=== PATIENT | male | born 1975 | race Two or more races ===

== ENCOUNTER 2025-02-07 13:07 | Outpatient (AMB) | payer MEDICAID, SELFPAY ==
[2025-02-07 13:28] VITALS: BP 160/97; PULSE 92; RESP 18; TEMP 36.9; O2SAT 98; BMI 31.2
--- NOTE | 2025-02-07 13:28 | PD.ORTHCLVIS ---
Vital signs 02/07/25 13:28 Height 1.7 m Height Method Stated Weight 90.407 kg Weight Measurement Method Standing Scale BMI 31.2 BP 160/97 H Blood Pressure Source Automatic Cuff Blood Pressure Location Right Upper Arm Position Sitting Respiration 18 Pulse 92 Pulse Source Monitor Temp 98.4 F Temp Source Temporal Artery Scan Pulse Oximetry (%) 98 Oxygen Delivery Method Room Air Med/Allergies Allergies & Medications Allergies No Known Allergies Allergy (Verified 02/07/25 13:29) Medication Reconciliation Unobtainable 02/07/25 [History Confirmed 02/07/25] Exam Exam Patient is in no acute distress and is cooperative with the examination today. Breathing is nonlabored. In no respiratory distress. Bilateral extremities were evaluated and demonstrates sensation intact to light touch. Palpable pedal pulses are present. No significant edema is present. Bilateral hips were examined. The patient has no pain with log roll of the hips. Internal rotation to 30 degrees and external rotation to 30 degrees is painless. Negative FADIR. The left knee was examined. The left knee is in varus alignment. Range of motion from 0-115 degrees. Knee is stable to varus and valgus as well as AP translation with <5mm. Patient has a negative McMurrays. There is no pain with patellofemoral compression and no crepitus noted. The knee is tender to palpation medially. The right knee was also examined. The right knee is in varus alignment. Range of motion from 0-120 degrees. Knee is stable to varus and valgus as well as AP translation with <5mm. Patient has a negative McMurrays. There is no pain with patellofemoral compression and no crepitus noted. The knee is tender to palpation medially X-rays were reviewed by me. This demonstrates complete joint space obliteration medially and [id number] arthritis. Assessment and Plan Problem List (1) Arthritis of both knees: Status: Acute Plan: Patient is a 49-year-old male with bilateral knee pain and bilateral knee arthritis. He has right greater than left knee pain. X-rays demonstrate severe arthritis of his right knee. We discussed total knee replacement is a reasonable option. I think his biggest issue is his back right now as he is using a walker because of it. He would need to see a back specialist. We will see him back when he is ready to get his knee replaced but his back should be addressed first Office Procedures GNS Level of Care Nursing/Assessment Patient Status: Initial/New Patient Nursing Assessment/Reassesment: Medication Reconciliation, Update PMH in EMR and Vital Signs Coordination of Care: Complex Care and Chronic Disease 1-5, Education Complex Pt/Fam, Consent,records obtained, informed consent, 1 Ins Authorization, Lab and Imaging orders, Results/Orders obtained and Staff clarify orders Special Needs: Language special needs New Patient Charge New Patient Point Assignment: 1124 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 ([id number]) MA Intake Visit Data Collection New Patient or Established: New Patient (never been to [facility]) Reason for Visit:: KNEE PAIN Seen by Clinical Staff ONLY (RN/MA): No Check Cashier Required: Yes PCP or OBGYN visit in last 3 months: Yes Hx Now: No Do You Feel Safe at Home: Yes Authorities Contacted: N/A Questionairres Past Medical History Past Medical History Have you ever been diagnosed with any of the following: Respiratory Problems Smoking: No Smoking Exposure: No Endocrine Problems Diabetes Mellitus Type 2: Yes Subjective Visit Visit for: new patient and knee Immunization / Flu Flu Vaccine in the Last 12 Months: No Flu Vaccine Exclusion Criteria: No Exclusion Criteria History of Present Illness Chief complaint: Bilateral knee pain Patient is a 49-year-old male with bilateral knee pain has been ongoing for 14 years. He reports a lot of pain in his buttocks as well as both knees. He reports that the right knee has a deformity. He does not have any x-rays currently with him. He uses a walker. He has no x-rays with him Pain Pain level (0-10): 10 Pain duration: ALL DAY Pain location: groin, inside (medial), outside (lateral), anterior and posterior Pain quality: sharp and burning Pain timing: night, increases with activity and stairs Associated signs & symptoms: numbness, weakness and stiffness Ambulatory data Ambulatory device: walker Treatments Number of previous injections: 1 Improvement with previous injections: No Improvement with PT: No Improvement with NSAIDS: no Review of Systems Review of Systems: All systems negative unless otherwise noted in HPI.
--- NOTE | 2025-02-07 13:31 | XR_ITS ---
Examination: Negative chest 2 views Right lateral knee 2 views Right axial knee left axial 2 views Technique: Bilateral AP knees standing single view, bilateral PA knees standing single view flexion Standing right lateral knee left lateral 2 views Axial right knee, axial left knee 2 views total 6 views Exam date and time: 2024 1244 hrs. Indications: Knee pain years. Findings: Prominent osteopenia Advanced narrowing [id number] medial joint space right knee Moderate osteoarthritis right patellofemoral joint Mild narrowing medial joint space Mild osteoarthritis left patellofemoral joint Impression: Advanced narrowing [id number] medial joint space right knee
== END 2025-02-07 13:37 | disposition home or self-care (01) ==
LOC: HODSRG 13:07
PROVIDERS: Supervising Provider Orthopaedic Surgery Adult Reconstructive Orthopaedic Surgery; Visit Provider Orthopaedic Surgery Adult Reconstructive Orthopaedic Surgery
DX: M17.0 Bilateral primary osteoarthritis of knee (principal)
CPT/HCPCS: 73564; 99204; G0463

== ENCOUNTER 2025-05-02 21:54 | Emergency (ER) | payer MEDICAID, SELFPAY ==
[2025-05-02 21:58] VITALS: BMI 31.0
[2025-05-02 22:45] VITALS: BP 156/89; PULSE 100; RESP 18; TEMP 37.2; O2SAT 98
--- NOTE | 2025-05-02 22:58 | EDNOTE_ITS ---
ED Back Injury Pain RME/HPI General Chief Complaint: Back Pain/Injury Stated Complaint: BACK PAIN Time Seen by Provider: 05/02/25 22:42 Arrival date/time: 05/02/25 21:54 49M with history of chronic sciatica for several years presents to ED with sciatica flare. Patient has R lower back pain that radiates into RLE. Patient had MRI 2 weeks ago, but doesn't know results. Patient also had an US of his RLE 2 months ago and it was normal. Patient had the US because his RLE would swelling and then become normal w/o intervention. Limitations: no limitations Related Data Home Medications ?Medication ?Instructions ?Recorded ?Confirmed Unobtainable 02/07/25 02/07/25 Allergies Allergy/AdvReac Type Severity Reaction Status Date / Time No Known Allergies Allergy Verified 05/02/25 22:03 Review of Systems Review of Systems Systems Reviewed: All systems reviewed, normal except as documented Constitutional Constitutional: Reports system reviewed and no additional complaints, except as documented, Denies fever(s) and Denies headache(s) ENT Ears, Nose, Mouth, and Throat: Denies disequilibrium and Denies headache(s) Cardiovascular Cardiovascular: Reports system reviewed and no additional complaints, except as documented, Denies chest pain and Denies dyspnea Respiratory Respiratory: Reports system reviewed and no additional complaints, except as documented, Denies cough and Denies dyspnea Gastrointestinal Gastrointestinal: Reports system reviewed and no additional complaints, except as documented, Denies abdominal pain, Denies nausea and Denies vomiting Musculoskeletal Musculoskeletal: Reports as per HPI, Reports back pain and Reports radiating pain into limb Neurologic Neurologic: Reports system reviewed and no additional complaints, except as documented, Denies confusion, Denies disequilibrium and Denies headache(s) Psychiatric Psychiatric: Denies confusion Past Medical History Past Medical History RESPIRATORY: Negative Smoking or Smoking Exposure ENDOCRINE: Positive Diabetes Mellitus Type 2 Social History SMOKING STATUS: Never smoker ED Exam General Limitations: Present no limitations General appearance: Present alert and in no apparent distress Head Head exam: Present atraumatic Eye Eye exam: Present normal appearance, PERRL and EOMI ENT ENT exam: Present normal exam, normal oropharynx and mucous membranes moist Neck Neck exam: Present normal inspection, full ROM and trachea midline Chest Chest inspection: Present normal inspection and symmetric chest wall rise Respiratory Respiratory exam: Present normal lung sounds bilaterally Cardiovascular Cardiovascular exam: Present regular rate, normal rhythm and normal heart sounds Abdominal Exam Abdominal exam: Present soft and normal bowel sounds Extremities Exam Extremities exam: Present full ROM Expanded Lower Extremity Exam Hip/Pelvis exam: Present full ROM and swelling Upper leg exam: Present full ROM and swelling Back Exam Back exam: Present normal inspection and full ROM Neurological Exam Neurological exam: Present alert, oriented X3 and CN II-XII intact Psychiatric Psychiatric exam: Present normal affect and normal mood Skin Skin exam: Present warm, dry, intact and normal color Course Quality Measures none Orders Category Date Time Status Gabapentin [Neurontin] Med 05/02/25 22:54 Once 300 mg PO X1 ONE Morphine Inj Med 05/02/25 22:54 Once 5 mg IVP X1 ONE Vital Signs Vital signs: Vital Signs Temperature 98.9 F 05/02/25 22:45 Pulse Rate 100 05/02/25 22:45 Respiratory Rate 18 05/02/25 22:45 Blood Pressure 156/89 H 05/02/25 22:45 Pulse Oximetry (%) 98 05/02/25 22:45 Oxygen Delivery Method Room Air 05/02/25 22:45 O2 at 98% on RA and WNLs Back Pain / Injury MDM Narrative MDM Narrative:: 49M with history of chronic sciatica for several years presents to ED with sciatica flare. Patient has R lower back pain that radiates into RLE. Patient had MRI 2 weeks ago, but doesn't know results. Patient also had an US of his RLE 2 months ago and it was normal. Patient had the US because his RLE would swelling and then become normal w/o intervention. Physical exam reveals mild RLE swelling (patient states is baseline for him), but no redness or tenderness. ROM intact. Normal WOB. Patienit is afebrile, alert, but appears to be in pain. Meds and legal counsel given. Patient data External records reviewed:: [facility] previous records Clinical information provided by:: patient Social determinants that could affect healthcare access:: none Patient has the following chronic illnesses:: sciatica How is presenting disease/condition affected by chronic disease/condition?: caused by Evaluation data The following diagnostics were reviewed and interpreted by me:: other (specify) (none) Lab and/or radiology exams considered but not ordered:: not ordered Interpretation Summary: n/a Medications / Prescriptions Medications or Prescriptions considered but not ordered:: ordered Medication administrations:: Medication Administration History Gabapentin (Gabapentin 300 Mg Capsule) 300 mg PO X1 ONE Stop: 05/02/25 22:55 Morphine Sulfate (Morphine Sulf Inj 10 Mg/Ml Vial) 5 mg IVP X1 ONE Stop: 05/02/25 22:55 above Consultations Consultation(s) initiated? (list below): No Diagnosis Differential diagnosis back pain/injury: lumbar radiculopathy, sciatica, strain of lumbar region, renal colic, pyelonephritis, thoracic back pain, AAA and discitis Most likely diagnosis given after review of the tests above:: sciatica Admission Indicated Admission indicated?: not indicated Admission Request Was there a request for admission?: No Disposition Plan Disposition Plan: Discharge Discharge Attestation Discharge Attestation: The patient and all family members were given an opportunity to ask questions and understood the discharge instructions. Discharge instructions specifically effects, indications for sooner follow up or return to the emergency department, and the expected course of current diagnosis. Patient condition: Stable Discharge Plan Plan Patient Disposition: HOME (Self Care) Discharge Disposition comment: Stable Prescriptions/Referrals Prescriptions/Med Rec: No Action Unobtainable Problem List Clinical Impression: Sciatica Patient/Caregiver Discharge Instructions Education Materials: Understanding Lumbar Radiculopathy, ED Sciatica Additional Instructions: Please follow-up with PCP within 24-48 hours and return immediately if symptoms worsen. If problem persists, recommend outpatient PT and/or MRI follow-up. In the meantime, rest, use ice/heat, and/or compression. Print Language: Urdu Stand Alone Forms: Patient Portal Info Letter EUNICE/SULEMAN Supervising Physician DAWN Supervising Physician: Dr. Martinez
[2025-05-02] MEDS: MORPHINE SULF INJ 10 MG/ML VIAL 5 MG IM (23:35)
[2025-05-02] MEDS: GABAPENTIN 300 MG CAPSULE PO (23:36)
== END 2025-05-03 01:37 | disposition home or self-care (01) ==
LOC: SERX 05-03 00:20
PROVIDERS: Emergency Provider Emergency Medicine; PCP Family Medicine
DX: M54.41 Lumbago with sciatica, right side (principal)
CPT/HCPCS: 96372; 99284; J2270; A9270